=== PATIENT | male | born 1990 | race Caucasian/White ===

== ENCOUNTER 2020-10-06 11:21 | Emergency (ER) | payer OTHER, SELFPAY ==
[2020-10-06] VITALS (7 sets, daily range): BP systolic 112–119; BP diastolic 64; PULSE 64–90; RESP 18–20; TEMP 37.1–37.4; O2SAT 96–97; BMI 48.9
--- NOTE | ~2020-10-06 | CT_ITS ---
EXAMINATION: CT HEAD WITHOUT CONTRAST CLINICAL INFORMATION: Fall. Loss of consciousness. COMPARISON: None TECHNIQUE: Contiguous axial imaging was performed from the skull base to vertex without intravenous administration of contrast. This CT examination was performed using dose optimization techniques as appropriate, variously including the following: *Automated exposure control *Adjustment of mA and/or kV according to patient size (this includes techniques or standardized protocols for targeted exams where dose is matched to indication/reason for exam; i.e. extremities or head) *Use of iterative reconstruction technique DLP: 733 mGy-cm FINDINGS: There is no evidence of acute intracranial hemorrhage or territorial infarction. No abnormal mass effect or midline shift is seen. Mathew to white matter differentiation is well preserved. No extra-axial fluid collections are identified. The ventricles are normal in size. There is no abnormal attenuation within the brain parenchyma. The osseous structures and soft tissues are normal. There is minimal soft tissue thickening in the left maxillary sinus. The mastoid air cells and visualized portions of the paranasal sinuses are otherwise clear. CT/CT head/brain wo con IMPRESSION: Unremarkable exam.
--- NOTE | 2020-10-06 11:57 | PC.NURSE ---
Pt cooperative w/ changeover, oriented to unit and to crisis process. Pt denies SI at this time, denies any attempt to harm himself prior to arrival, denies any hx of attempts in the past.
--- NOTE | 2020-10-06 12:00 | ED.PSYCH ---
HPI - Psych General Chief Complaint: Psychiatric Symptoms Stated Complaint: SECTION 12 BY [employer] Time Seen by Provider: 10/06/20 12:00 Source: patient Mode of arrival: ambulatory History of Present Illness HPI Narrative: 29-year-old male with no significant past medical history presenting to the ED Section 12 by Alondra TORIBIO after sending picture to ex-girlfriend with nuse tied around his neck. Patient denies SI or HI, states he was trying to freak his ex-girlfriend out and fuck her up. Per PD/EMS was 2-3 hour search for patient as he ran [place] them. Patient admits to trip and fall in [place], hit head on rock, +LOC. Denies taking anticoagulation, states woke up and continued to run. Admits to using heroin, denies other illicit drugs or EtOH, last use around 5:00 a.m. Denies headache, CP/SOB, cough, abdominal pain, nausea/vomiting MD complaint: substance abuse Related Data Allergies Allergy/AdvReac Type Severity Reaction Status Date / Time No Known Allergies Allergy Unverified 02/07/20 17:16 [No Known Allergies*] Review of Systems Review of Systems: Constitutional: No Fever, No Chills ENT/Mouth: No Ear Pain, No sore throat, No Rhinorrhea, No Swallowing Difficulty Eyes: No Eye Pain, + Swelling, No Redness, No Discharge, No Vision Changes Cardiovascular: No Chest Pain, No SOB Respiratory: No Cough, No Dyspnea Gastrointestinal: No Nausea, No Vomiting, No Abdominal pain Genitourinary: No Dysuria, No Hematuria Musculoskeletal: No joint pain, No Myalgias, No Joint Swelling Skin: No Skin Lesions, No rash Neuro: No Weakness, No Numbness, No Paresthesias, + Loss of Consciousness, No Dizziness, No Headache Psych: No Depression, No SI/HI Yes all other systems are reviewed and are negative [facility] Past Medical History Attestation statement: The following information was validated with the patient. Medical History (Updated 10/06/20 @ 14:40 by SONAM Schroeder) No known health problems Right ACL tear Social History Social History Smoking Status: Current every day smoker Use of substances other than those prescribed or required for medical reasons: Yes Substance Use Type: Heroin Advance Directives: No Advance Directives Information Provided: Yes Physical Exam Vital Signs: Vital Signs: Last Vital Signs Temp 98.7 F 10/06/20 16:09 Pulse 66 10/06/20 16:09 Resp 20 10/06/20 12:00 BP 119/64 10/06/20 16:09 Pulse Ox 97 10/06/20 16:09 Body Mass Index 48.9 Const: General: cooperative and healthy appearing Orientation/consciousness: patient oriented x3 Limitations: no limitations HENMT: Other: No evidence of periorbital step-off. EOMs intact without entrapment or pain. Head: Yes periorbital ecchymosis (Left) Ears: hearing grossly normal bilaterally General nose exam: Normal external nose present Mouth: Normal oral and palatal mucosa present Throat: Yes posterior oropharynx normal and Yes uvula midline Eyes: General: appearance normal, both eyes and all related structures Periorbital: periorbital findings abnormal Conjunctivae: conjunctivae normal Sclerae: sclerae normal Corneas: corneas normal Pupils: Equal, round and reactive pupils present EOM: EOMs intact bilaterally Neck: Other: No midline cervical spinous tenderness Neck: Yes normal visual inspection, Yes no lymphadenopathy and Yes no meningeal signs Resp: Effort & Inspection: normal respiratory effort Auscultation: clear to auscultation bilaterally, no rales, no rhonchi and no wheezes Cardio: Rate: regular rate Heart sounds: S1 normal heart sound present and S2 normal heart sound present GI: Inspection: Yes normal to inspection Palpation (GI): Soft to palpation, nontender, no guarding and not rigid Skin: Rashes: no rashes Wounds: no wounds Neuro: General: patient oriented x3, gait normal, tone normal, moves all extremities, no meningeal signs, no focal motor deficits and CN's II-XI intact bilaterally Cranial nerves: Yes Equal, round and reactive pupils present Gait exam (Neuro): Normal gait present Coordination: [id number] test normal and Romberg test negative Extrem: General: Yes normal to inspection Course Course Course Narrative: -mild leukocytosis 12.3, labs otherwise unremarkable. Tox screen positive for opiates, cocaine, and marijuana CT head/brain wo con IMPRESSION: Unremarkable exam. -1724-- patient was evaluated by care team and is now on inpatient bed search, pr ex-girlfriend patient has been increasingly depressed and making suicidal comments. ED care transferred to [facility] pending bed search. Physician observation initiated MDM - Psych MDM Narrative Medical decision making narrative: 29-year-old male with no significant past medical history presenting to the ED Section 12 by Alondra TORIBIO after sending picture to ex-girlfriend with nuse tied around his neck. Patient denies SI or HI, Patient admits to trip and fall in [place], hit head on rock, +LOC. On exam VSS, NAD/well-appearing, left periorbital ecchymosis noted, no focal neuro deficits, denies SI/HI. Will obtain labs, head CT and [facility]N consult Medical Records Attestation: I reviewed the patient's medical records. Lab Data Attestation: I reviewed the patient's lab results. Result diagrams: 10/06/20 13:12 10/06/20 13:12 Labs: Lab Results 10/06/20 10/06/20 10/06/20 Range/Units 12:03 13:12 13:12 WBC 12.3 H (4.8-10.8) X10*3/uL RBC 4.42 L (4.60-5.80) X10*6/uL Hgb 14.2 (14.0-18.0) g/dl Hct 40.9 L (42-52) % MCV 92.5 (80-98) fL MCH 32.1 (27.0-33.0) pg MCHC 34.7 (31.0-36.0) g/dl RDW 12.5 (11.0-16.0) % Plt Count 345 (160-400) X10*3/uL MPV 9.0 L (9.4-12.4) fL Immature Gran % (Auto) 0.4 (0.0-0.4) % Neut % (Auto) 79.5 H (45-73) % Lymph % (Auto) 12.3 L (20-40) % Louisa % (Auto) 7.2 (2-11) % Eos % (Auto) 0.2 (0-4) % Baso % (Auto) 0.4 (0-2) % Lymph # (Auto) 1.5 (1.2-4.9) X10*3/uL Louisa # (Auto) 0.9 (0.1-1.2) X10*3/uL Eos # (Auto) 0.0 (0.0-0.4) X10*3/uL Baso # (Auto) 0.1 (0.0-0.2) X10*3/uL Abs Immat Gran (auto) 0.05 H (0.00-0.03) X10*3/uL Absolute Neuts (auto) 9.8 H (2.0-8.3) X10*3/uL Absolute Nucleated RBC 0.000 (0.0-0.012) X10*3/uL Nucleated RBC % (auto) 0.0 (0.0-0.2) /100WBC Hold Blue Top Sodium 143 (135-145) mmol/L Potassium 4.0 (3.3-5.1) mmol/L Chloride 102 (96-108) mmol/L Carbon Dioxide 29 (22-29) mmol/L Anion Gap 16 (12-20) BUN 9 (9-16) mg/dL Creatinine 0.96 (0.5-1.4) mg/dL Estim Creat Clear Calc 192.0 Estimated GFR > 60 Random Glucose 95 (60-115) mg/dL Calcium 9.5 (8.4-10.2) mg/dL Total Bilirubin 0.6 (0.0-1.0) mg/dL AST 12 (5-37) U/L ALT 11 (0-40) U/L Alkaline Phosphatase 76 (39-117) U/L Total Protein 6.6 (6.5-8.0) g/dL Albumin 4.6 (3.5-5.0) g/dL Lipase 24 (8-78) U/L Salicylates < 5.0 L (15-30) mg/dL Urine Opiates Screen (Not Detect) Acetaminophen < 1 (<30) mcg/mL Ur Barbiturates Screen (Not Detect) Ur Phencyclidine Scrn (Not Detect) Ur Amphetamines Screen (Not Detect) U Benzodiazepines Scrn (Not Detect) Urine Cocaine Screen (Not Detect) U Marijuana (THC) Screen (Not Detect) Ethyl Alcohol mg/dL COVID-19 (DELFINA) Negative (Negative) COVID-19 Clin Com See Note 10/06/20 10/06/20 10/06/20 Range/Units 13:12 13:12 13:21 WBC (4.8-10.8) X10*3/uL RBC (4.60-5.80) X10*6/uL Hgb (14.0-18.0) g/dl Hct (42-52) % MCV (80-98) fL MCH (27.0-33.0) pg MCHC (31.0-36.0) g/dl RDW (11.0-16.0) % Plt Count (160-400) X10*3/uL MPV (9.4-12.4) fL Immature Gran % (Auto) (0.0-0.4) % Neut % (Auto) (45-73) % Lymph % (Auto) (20-40) % Louisa % (Auto) (2-11) % Eos % (Auto) (0-4) % Baso % (Auto) (0-2) % Lymph # (Auto) (1.2-4.9) X10*3/uL Louisa # (Auto) (0.1-1.2) X10*3/uL Eos # (Auto) (0.0-0.4) X10*3/uL Baso # (Auto) (0.0-0.2) X10*3/uL Abs Immat Gran (auto) (0.00-0.03) X10*3/uL Absolute Neuts (auto) (2.0-8.3) X10*3/uL Absolute Nucleated RBC (0.0-0.012) X10*3/uL Nucleated RBC % (auto) (0.0-0.2) /100WBC Hold Blue Top SEE NOTE Sodium (135-145) mmol/L Potassium (3.3-5.1) mmol/L Chloride (96-108) mmol/L Carbon Dioxide (22-29) mmol/L Anion Gap (12-20) BUN (9-16) mg/dL Creatinine (0.5-1.4) mg/dL Estim Creat Clear Calc Estimated GFR Random Glucose (60-115) mg/dL Calcium (8.4-10.2) mg/dL Total Bilirubin (0.0-1.0) mg/dL AST (5-37) U/L ALT (0-40) U/L Alkaline Phosphatase (39-117) U/L Total Protein (6.5-8.0) g/dL Albumin (3.5-5.0) g/dL Lipase (8-78) U/L Salicylates (15-30) mg/dL Urine Opiates Screen POSITIVE H (Not Detect) Acetaminophen (<30) mcg/mL Ur Barbiturates Screen Not Detected (Not Detect) Ur Phencyclidine Scrn Not Detected (Not Detect) Ur Amphetamines Screen Not Detected (Not Detect) U Benzodiazepines Scrn Not Detected (Not Detect) Urine Cocaine Screen POSITIVE H (Not Detect) U Marijuana (THC) Screen POSITIVE H (Not Detect) Ethyl Alcohol < 10 mg/dL COVID-19 (DELFINA) (Negative) COVID-19 Clin Com Discharge Plan Discharge Clinical Impression: Behavior concern, Fall
--- NOTE | 2020-10-06 12:09 | PC.NURSE ---
Pt reported that he tripped and fell while running in the [place]. Mild bruising noted to right eye- ice pack supplied, pt denies significant pain.
[2020-10-06 12:28] LABS: COVID-19 Test Negative (Negative); IDNOW Serial# 9DD0AD1C
[2020-10-06 13:18] LABS: Basophils Absolute Auto 0.1 X10*3/uL (0.0-0.2); Basophils Percent Auto 0.4 % (0-2); Eosinophils Percent Auto 0.2 % (0-4); Hematocrit 40.9 % (42-52); Hemoglobin 14.2 g/dl (14.0-18.0); Imm Gran Abs Auto 0.05 X10*3/uL (0.00-0.03); Imm Gran Pct Auto 0.4 % (0.0-0.4); Lymphocytes Absolute Auto 1.5 X10*3/uL (1.2-4.9); Lymphocytes Percent Auto 12.3 % (20-40); MANUAL DIFF FLAG NO; Mean Corpuscular HGB Conc 34.7 g/dl (31.0-36.0); Mean Corpuscular Hemoglobin 32.1 pg (27.0-33.0); Mean Corpuscular Volume 92.5 fL (80-98); Monocytes Absolute Auto 0.9 X10*3/uL (0.1-1.2); Monocytes Percent Auto 7.2 % (2-11); Neutrophils Absolute Auto 9.8 X10*3/uL (2.0-8.3); Neutrophils Percent Auto 79.5 % (45-73); Platelet Count 345 X10*3/uL (160-400); Red Blood Count 4.42 X10*6/uL (4.60-5.80); Red Cell Distribution Width 12.5 % (11.0-16.0); White Blood Count 12.3 X10*3/uL (4.8-10.8)
[2020-10-06 13:43] LABS: Ethanol < 10 mg/dL
[2020-10-06 13:46] LABS: Acetaminophen LAB < 1 mcg/mL (<30); Alanine Aminotransferase 11 U/L (0-40); Albumin Level 4.6 g/dL (3.5-5.0); Alkaline Phosphatase 76 U/L (39-117); Anion Gap 16 (12-20); Aspartate Amino Transferase 12 U/L (5-37); Bilirubin Total 0.6 mg/dL (0.0-1.0); Blood Urea Nitrogen 9 mg/dL (9-16); Calcium 9.5 mg/dL (8.4-10.2); Carbon Dioxide 29 mmol/L (22-29); Chloride 102 mmol/L (96-108); Estimated Glomerular Filt Rate > 60; Glucose Random 95 mg/dL (60-115); Lipase 24 U/L (8-78); Salicylate < 5.0 mg/dL (15-30); Sodium 143 mmol/L (135-145); Total Protein 6.6 g/dL (6.5-8.0)
[2020-10-06 14:03] LABS: Amphetamine Screen Urine Not Detected (Not Detect); Barbiturates, Urine Not Detected (Not Detect); Benzodiazepines Screen Urine Not Detected (Not Detect); Cannabinoid Screen Urine POSITIVE (Not Detect); Cocaine Screen Urine POSITIVE (Not Detect); Opiate Screen Urine POSITIVE (Not Detect); Phencyclidine Screen Urine Not Detected (Not Detect)
[2020-10-06] MEDS: Dicyclomine HCl 10 MG CAPSULE 20 MG PO (15:14)
[2020-10-06] MEDS: LORazepam 1 MG TABLET PO (15:15)
--- NOTE | 2020-10-06 15:43 | PC.NURSE ---
Pt reporting the start of withdrawal symptoms, COWS completed, provider notified and pt medicated as ordered.
--- NOTE | 2020-10-06 17:45 | PC.NURSE ---
Pt denies any symptoms of withdrawal at this time, currently eating dinner. Pt is aware that he is waiting for inpatient bed, no concerns at this time.
--- NOTE | 2020-10-06 18:22 | MHC.CARE ---
[facility] unable to provide clinician to evaluate pt. CARE team contacted [facility] re: taking the case. Disposition is for inpatient admission to a Dual Diagnosis unit. Statewide bedsearch completed, no beds available this evening. Referral packet faxed to [facility], [facility], and [facility] to review for possible admission tomorrow, 10/07/20.
--- NOTE | 2020-10-06 20:49 | MHC.CARE ---
Pt was accepted to [facility]. I spoke to Paris from admissions who states they need his authorization prior to arrival. They are expecting him tomorrow for 1pm and 10:00am they would like the nurse to nurse completed. Accepting Dr is Dr. Michele.
[2020-10-06] MEDS: LORazepam 1 MG TABLET 2 MG PO (22:24)
--- NOTE | 2020-10-06 22:28 | PC.NURSE ---
Patient just got for bathroom use and back, appears tired and restless, COW assessed scored 7, provider notified/ordered Ativan 2 mg/administered as ordered pending effect, will continue to monitor.
--- NOTE | 2020-10-07 00:57 | MHC.CARE ---
Insurance authorization obtained. This creative writer contacted [facility] for provide this information. Denise from [employer] ([facility]) approved 6 days starting 10/07 with last cover day 10/12. Auth #[id number]
[2020-10-07 02:10] VITALS: RESP 18
[2020-10-07 04:04] VITALS: PULSE 70
[2020-10-07 05:41] VITALS: PULSE 82
[2020-10-07 05:51] VITALS: BP 126/68; PULSE 73
[2020-10-07] MEDS: cloNIDine HCL 0.1 MG TABLET PO (05:51)
[2020-10-07] MEDS: LORazepam 1 MG TABLET PO (05:51)
[2020-10-07 05:54] VITALS: BP 126/68; PULSE 73; RESP 16; TEMP 37.4; O2SAT 97
--- NOTE | 2020-10-07 07:25 | PC.NURSE ---
Report received from KOFFI Killian. Pt resting, resp unlabored.
--- NOTE | 2020-10-07 08:39 | PC.NURSE ---
Report given to KOFFI Parrish at [facility]. Pt alert, aware that he will be transferred, crisis/inpatient process described to pt. Pt denies any symptoms of withdrawal at this time, ate breakfast- states 'i'm fine' though appears anxious.
--- NOTE | 2020-10-07 09:16 | PC.NURSE ---
N December aware of pt current vitals, labs. Pt may be transferred as ordered, no further orders at this time.
--- NOTE | 2020-10-07 10:42 | PC.NURSE ---
Pt awake, oob to bathroom, denies any symptoms of withdrawal at this time, aware he will be transferred soon, denies pain, states 'i just want to sleep'.
[2020-10-07 11:15] VITALS: BP 118/58; PULSE 71; RESP 16; TEMP 37; O2SAT 98
--- NOTE | 2020-10-07 11:34 | PC.NURSE ---
Late entry: 1115: EMS in to transfer pt to [place]. Pt cooperative w/ transfer, no concerns reported.
== END 2020-10-07 11:20 ==
PROVIDERS: Physician Assistant; Emergency Provider Emergency Medicine; PCP Internal Medicine
DX: F91.9 Conduct disorder, unspecified (principal); F11.10 Opioid abuse, uncomplicated; R45.851 Suicidal ideations; S00.12XA Contusion of left eyelid and periocular area, initial encounter; W01.198A Fall on same level from slipping, tripping and stumbling with subsequent striking against other object, initial encounter; Y93.02 Activity, running; Y92.828 Other wilderness area as the place of occurrence of the external cause; Y99.8 Other external cause status; Z20.822 Contact with and (suspected) exposure to COVID-19; F17.200 Nicotine dependence, unspecified, uncomplicated
CPT/HCPCS: 36415; 70450; 80053; 80143; 80179; 80307; 80320; 83690; 85025; 87635; 99285

== ENCOUNTER 2021-04-24 18:53 | Emergency (ER) | payer OTHER, SELFPAY ==
[2021-04-24 19:25] VITALS: BP 123/57; PULSE 69; RESP 14; TEMP 36.6; O2SAT 96; BMI 23.5
== END 2021-04-24 19:59 | disposition left against medical advice (07) ==
PROVIDERS: Emergency Provider Internal Medicine
DX: F11.90 Opioid use, unspecified, uncomplicated (principal)
CPT/HCPCS: 99283